=== PATIENT | male | born 1985 | race Two or more races ===

== ENCOUNTER 2017-02-09 23:23 | Emergency (ER) | payer SELFPAY ==
[~2017-02-09] VITALS: Ht 177.8 cm; Wt 64.0 kg
[2017-02-10] MEDS ORDERED: KETOROLAC 60MG/2ML VIAL IM ONE (06:45)
[2017-02-10 06:58] VITALS: BP 120/82
== END 2017-02-10 08:10 | disposition home or self-care (01) ==
LOC: ER 02-10 08:08
DX: K04.7 Periapical abscess without sinus (principal); F17.200 Nicotine dependence, unspecified, uncomplicated
CPT/HCPCS: 96372; 99283; J1885; Z7610